=== PATIENT | female | born 1970 | race Caucasian/White ===

== ENCOUNTER 2017-08-23 15:37 | Emergency (ER) | payer OTHER ==
[~2017-08-23] VITALS: Ht 162.6 cm; Wt 56.7 kg
[~2017-08-23 15:37] MED LIST: ANTIVERT25 MG PO
[2017-08-23] MEDS ORDERED: ESTROGEN TOP (15:56)
[2017-08-23 16:31] LABS: ABSOLUTE LYMPHOCYTES 1.2 thou/uL (0.8-5.3); ABSOLUTE MONOCYTES 0.3 thou/uL (0.0-1.2); ABSOLUTE NEUTROPHILS 3.5 thou/uL (1.6-8.1); BASOPHILS 0.2 %; EOSINOPHILS 0.1 %; HEMATOCRIT 38.8 % (37.0-47.0); HEMOGLOBIN 13.7 gm/dL (12.0-15.0); LYMPHOCYTES 24.6 %; MCH 31.7 pg (26.0-34.0); MCHC 35.4 g/dL (28.0-37.0); MCV 89.4 fL (80.0-100.0); MONOCYTES 5.5 %; MPV 8.6 fl. (7.2-11.1); NUCLEATED RBCS 0 /100WBC; PLATELET COUNT* 204 thou/uL (150-400); POLYS 69.6 %; RBC 4.34 mil/uL (4.20-5.00); RDW-CV 12.6 % (10.5-14.5)
[2017-08-23 16:34] LABS: URINE BILIRUBIN NEGATIVE (Negative); URINE BLOOD TRACE (Negative); URINE CLARITY CLEAR; URINE COLOR YELLOW; URINE GLUCOSE-RANDOM NEGATIVE (Negative); URINE KETONES NEGATIVE (Negative); URINE LEUKOCYTES-REFLEX TRACE (Negative); URINE NITRITE-REFLEX NEGATIVE (Negative); URINE PROTEIN NEGATIVE (Negative); URINE SPECIFIC GRAVITY <= 1.005 (1.005-1.030); URINE UROBILINOGEN 0.2 E.U./dl (0.2-1.0)
[2017-08-23 16:44] LABS: CALCIUM 9.9 mg/dL (8.5-10.1); CREATININE 0.9 mg/dL (0.6-1.3); POTASSIUM 3.4 mmol/L (3.5-5.1)
[2017-08-23 16:49] LABS: ALBUMIN 4.9 g/dL (3.4-5.0); TOTAL BILIRUBIN 1.1 mg/dL (<0.1-1.0); TOTAL PROTEIN 8.3 g/dL (6.4-8.2)
[2017-08-23 16:51] LABS: INFLUENZA A ANTIGEN None Detected (None Detect); INFLUENZA B ANTIGEN None Detected (None Detect)
[2017-08-23 17:05] LABS: BACTERIA-REFLEX None Seen /HPF (None Seen); CASTS None Seen /LPF (None Seen); SQUAMOUS >10 Many /LPF (0-3); URINE RBC None Seen /HPF (0-2); URINE WBC-REFLEX 0-5 Rare /HPF (0-5)
[2017-08-23 17:06] LABS: CRYSTALS None Seen /LPF (None Seen)
[2017-08-23] MEDS ORDERED: ONDANSETRON HCL4 M2 PO (18:01)
[2017-08-23] MEDS ORDERED: MECLIZINE HCL25 M1 PO (18:07)
[2017-08-23 18:17] VITALS: BP 131/75
== END 2017-08-23 18:18 | disposition home or self-care (01) ==
LOC: M.ERS 15:37
PROVIDERS: Nurse Practitioner
DX: H66.91 Otitis media, unspecified, right ear (principal); R11.2 Nausea with vomiting, unspecified; Z90.710 Acquired absence of both cervix and uterus

== ENCOUNTER 2018-09-14 23:07 | Emergency (ER) | payer OTHER ==
[~2018-09-14] VITALS: Ht 162.6 cm; Wt 63.5 kg
[~2018-09-14 23:07] MED LIST changes: +ESTROGEN TOP; +MECLIZINE HCL25 M1 PO; +ONDANSETRON HCL4 M2 PO
[2018-09-14] MEDS ORDERED: EFFEXOR XR75 MG PO (23:18)
[2018-09-14 23:50] LABS: ABSOLUTE EOSINOPHILS 0.1 thou/uL (0.0-0.7); ABSOLUTE LYMPHOCYTES 1.6 thou/uL (0.8-5.3); ABSOLUTE MONOCYTES 0.4 thou/uL (0.0-1.2); ABSOLUTE NEUTROPHILS 3.4 thou/uL (1.6-8.1); BASOPHILS 0.8 %; EOSINOPHILS 1.6 %; HEMATOCRIT 36.6 % (37.0-47.0); HEMOGLOBIN 12.7 gm/dL (12.0-15.0); LYMPHOCYTES 28.7 %; MCH 31.5 pg (26.0-34.0); MCHC 34.7 g/dL (28.0-37.0); MCV 90.7 fL (80.0-100.0); MONOCYTES 6.4 %; MPV 8.6 fl. (7.2-11.1); NUCLEATED RBCS 0 /100WBC; PLATELET COUNT* 200 thou/uL (150-400); POLYS 62.5 %; RBC 4.03 mil/uL (4.20-5.00); RDW-CV 13.3 % (10.5-14.5); WBC 5.5 thou/uL (4.0-11.0)
[2018-09-14 23:59] LABS: APTT 26.3 Seconds (25.0-31.3); PROTIME 10.2 Seconds (9.20-11.50)
[2018-09-15 00:04] LABS: ANION GAP 4 mmol/L (7-16); BUN 20 mg/dL (7-18); CHLORIDE 105 mmol/L (98-107); CO2 29 mmol/L (21-32); GLUCOSE 106 mg/dL (70-99); POTASSIUM 3.8 mmol/L (3.5-5.1); SODIUM 138 mmol/L (136-145)
[2018-09-15 00:23] LABS: ALKALINE PHOSPHATASE 70 U/L (46-116); CK-MB MASS 0.5 ng/mL (<0.5-3.6); LIPASE 127 U/L (73-393); NT-PRO BRAIN NAT PEPTIDE 86 pg/mL (<300); SGOT 26 U/L (15-37); SGPT 24 U/L (30-65); TOTAL BILIRUBIN 0.4 mg/dL (<0.1-1.0); TOTAL PROTEIN 7.1 g/dL (6.4-8.2); TROPONIN-I LEVEL <0.06 ng/mL (<0.06)
[2018-09-15 00:50] VITALS: BP 135/73
--- NOTE | 2018-09-17 10:59 | EKG ---
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
== END 2018-09-15 00:55 | disposition home or self-care (01) ==
LOC: M.ERS 23:07
PROVIDERS: Family Medicine
DX: F41.0 Panic disorder [episodic paroxysmal anxiety] (principal); Z90.710 Acquired absence of both cervix and uterus

== ENCOUNTER 2020-10-09 19:02 | Emergency (ER) | payer OTHER ==
[~2020-10-09] VITALS: Ht 162.6 cm; Wt 65.8 kg
[~2020-10-09 19:02] MED LIST changes: +EFFEXOR XR75 MG PO
[2020-10-09 19:33] LABS: ABSOLUTE BASOPHILS 0.1 thou/uL (0.0-0.2); ABSOLUTE EOSINOPHILS 0.1 thou/uL (0.0-0.7); ABSOLUTE LYMPHOCYTES 2.4 thou/uL (0.8-5.3); ABSOLUTE MONOCYTES 0.3 thou/uL (0.0-1.2); ABSOLUTE NEUTROPHILS 6.2 thou/uL (1.6-8.1); BASOPHILS 0.6 %; EOSINOPHILS 1.1 %; HEMATOCRIT 40.8 % (37.0-47.0); HEMOGLOBIN 14.1 gm/dL (12.0-15.0); LYMPHOCYTES 26.4 %; MCH 31.1 pg (26.0-34.0); MCHC 34.7 g/dL (28.0-37.0); MCV 89.8 fL (80.0-100.0); MONOCYTES 3.2 %; MPV 8.4 fl. (7.2-11.1); NUCLEATED RBCS 0 /100WBC; PLATELET COUNT* 246 thou/uL (150-400); POLYS 68.7 %; RBC 4.54 mil/uL (4.20-5.00); WBC 9.1 thou/uL (4.0-11.0)
[2020-10-09 19:41] LABS: CALCIUM 8.9 mg/dL (8.5-10.1); CREATININE 1.1 mg/dL (0.6-1.3); POTASSIUM 3.5 mmol/L (3.5-5.1)
[2020-10-09 19:44] LABS: URINE BILIRUBIN NEGATIVE (Negative); URINE BLOOD TRACE (Negative); URINE CLARITY CLEAR; URINE COLOR YELLOW; URINE GLUCOSE-RANDOM NEGATIVE (Negative); URINE KETONES NEGATIVE (Negative); URINE LEUKOCYTES-REFLEX NEGATIVE (Negative); URINE NITRITE-REFLEX NEGATIVE (Negative); URINE PROTEIN 1+ (Negative); URINE SPECIFIC GRAVITY >= 1.030 (1.005-1.030); URINE UROBILINOGEN 0.2 E.U./dl (0.2-1.0)
[2020-10-09 19:46] LABS: ALBUMIN 3.8 g/dL (3.4-5.0); MAGNESIUM 1.9 mg/dL (1.8-2.4); TOTAL BILIRUBIN 0.4 mg/dL (<0.1-1.0); TOTAL PROTEIN 6.5 g/dL (6.4-8.2)
[2020-10-09] MEDS ORDERED: PREDNISONE50 MG PO (21:21)
[2020-10-09 21:34] VITALS: BP 118/73
--- NOTE | 2020-10-12 10:36 | EKG ---
[place] [address] ELECTROCARDIOGRAM REPORT Name: KOJO JASON Room: 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: : 1970 Requested By: Lori Summers Order Number: [id number] MD: Rayo Hewitt Measurements Intervals [place] Rate: 89 P: 65 AL: 146 QRS: 70 QRSD: 83 T: -37 QT: 332 QTc: 404 Interpretive Statements Sinus rhythm Borderline repolarization abnormality Compared to ECG 09/14/2018 23:22:59 No significant changes Electronically Signed On 10-12-2020 10:36:29 CDT by Rayo Hewitt [email or web address] <ELECTRONICALLY SIGNED> By: Rayo Hewitt MD, [facility] 10/12/20 1036 190 06 Rayo Hewitt MD, [facility] /EPI
== END 2020-10-09 21:34 | disposition home or self-care (01) ==
LOC: M.ERS 19:02
PROVIDERS: Emergency Medicine
DX: L53.9 Erythematous condition, unspecified (principal); T36.1X5A Adverse effect of cephalosporins and other beta-lactam antibiotics, initial encounter; Z90.710 Acquired absence of both cervix and uterus; Y92.89 Other specified places as the place of occurrence of the external cause